=== PATIENT | male | born 1960 | race Caucasian/White ===

== ENCOUNTER 2020-02-24 16:17 | Inpatient (IN) ==
[2020-02-24] MEDS ORDERED: *HR* Heparin 10,000 UNIT/10 ML VIAL ONE ×2 (16:36→17:20)
[2020-02-24] MEDS ORDERED: *HR* Ticagrelor 90 MG TABLET ONE (16:39)
[2020-02-24] MEDS ORDERED: *HR* Atropine Sulfate 1 MG/10 ML SYRINGE ONE ×3 (16:53→22:00)
[2020-02-24] MEDS ORDERED: niCARdipine 20 MG/200 ML MLS IVC ONE (16:56)
[2020-02-24] MEDS ORDERED: Tirofiban 12.5 MG/250ML 12.5 MG/250 ML BAG ONE (17:09)
[2020-02-24] MEDS ORDERED: *HR* Midazolam HCl 2 MG/2 ML VIAL ONE (17:20)
[2020-02-24] MEDS ORDERED: 0.9 % Sodium Chloride 2,000 ML ONE (17:20)
[2020-02-24] MEDS ORDERED: *HR* Bivalirudin 250 MG VIAL IVC ONE (17:20)
[2020-02-24] MEDS ORDERED: Heparin 1,000 UNITS/500 mL 500 ML ONE (17:20)
[2020-02-24] MEDS ORDERED: *HR* FentaNYL (PF) 100 MCG/2 ML VIAL ONE (17:20)
[2020-02-24] MEDS ORDERED: ISOVUE-370 200 ML INFUS..BTL ONE (17:20)
[2020-02-24] MEDS ORDERED: Nitroglycerin 1,000 MCG/10 ML VIAL IV ONE (17:20)
[2020-02-24] MEDS ORDERED: 0.9 % Sodium Chloride 1,000 ML ONE (17:24)
[2020-02-24] MEDS ORDERED: Perflutren Lipid Microsphere 1.3 ML in 0.9 % Sodium Chloride 8.7 ML IVP PRN (17:26)
[2020-02-24] MEDS ORDERED: Tirofiban 0.05 MG/1 ML (BOLUS FROM BAG) IV ONE (17:26)
[2020-02-24] MEDS ORDERED: 0.9 % Sodium Chloride 1,000 ML IVC SCH (17:30)
[2020-02-24] MEDS ORDERED: Tirofiban 12.5 MG/250ML 12.5 MG/250 ML BAG IVC SCH (17:30)
[2020-02-24] MEDS: *HR* Ticagrelor 90 MG TABLET PO SCH (20:10)
[2020-02-25 05:42] LABS: Basophils # 0.1 K/mcL (0.0-0.2); Basophils % 0.4 %; Eosinophils % 0.2 %; Hematocrit 41.6 % (37.5-50.1); Immature Granulocytes % 0.3 % (0-4); Lymphocytes # 2.3 K/mcL (0.6-4.6); Lymphocytes % 14.2 %; Mean Corpuscular HGB Conc 33.7 g/dL (31.6-35.5); Mean Corpuscular Hemoglobin 31.7 pg (28.0-33.3); Mean Corpuscular Volume 94.1 fL (83.0-100.0); Mean Platelet Volume 8.9 fL (9.4-12.4); Monocytes # 1.4 K/mcL (0.0-1.3); Monocytes % 8.4 %; Neutrophils # 12.3 K/mcL (1.6-8.9); Platelet Count 313 K/mcL (140-400); Red Blood Count 4.42 M/mcL (4.19-5.50); Red Cell Distribution Width 13.4 % (11.5-14.5); Segmented Neutrophils % 76.5 %; White Blood Count 16.1 K/mcL (4.3-11.1)
[2020-02-25 06:08] LABS: Troponin I 30.71 ng/mL (< 0.04)
[2020-02-25 06:09] LABS: BUN/Creatinine Ratio 19 (6-26); Blood Urea Nitrogen 11 mg/dL (6-20); Calcium 8.6 mg/dL (8.6-10.3); Carbon Dioxide 24 mEq/L (23-29); Chloride 106 mEq/L (98-107); Chol/HDL Ratio 6.3 (0-4.9); Cholesterol 182 mg/dL (< 200); Glucose 122 mg/dL (70-105); HDL Cholesterol 29 mg/dL (40-59); LDL Cholesterol,Calculated 119 mg/dL (< 100); Osmolality,Calculated 285 (280-300); Potassium 4.1 mEq/L (3.5-5.1); Sodium 137 mEq/L (136-145); Triglycerides 170 mg/dL (< 150); eGFR For African Americans > 60 (> 60); eGFR For Non-African Americans > 60 (> 60)
[2020-02-25] MEDS ORDERED: Aspirin 81 MG TAB.CHEW PO SCH (09:00)
[2020-02-25] MEDS: *HR* Ticagrelor 90 MG TABLET PO SCH ×2 (09:41→20:30)
[2020-02-25] MEDS ORDERED: Famotidine 20 MG TABLET PO PRN (21:13)
[2020-02-26] MEDS: *HR* Ticagrelor 90 MG TABLET PO SCH ×2 (07:24→21:27)
[2020-02-26] MEDS: Aspirin 81 MG TAB.CHEW PO SCH (07:24)
[2020-02-26] MEDS ORDERED: 0.9 % Sodium Chloride 1,000 ML ONE (10:21)
[2020-02-27] MEDS: Aspirin 81 MG TAB.CHEW PO SCH (07:25)
[2020-02-27] MEDS: *HR* Ticagrelor 90 MG TABLET PO SCH (07:26)
[2020-02-27 11:11] VITALS: BP 108/63
== END 2020-02-27 14:02 | disposition home or self-care (01) | DRG 174 ==
LOC: EMEROOARM 16:17 → ICNU 18:04 → 2NNU 02-25 22:50
PROVIDERS: ADMIT Internal Medicine Interventional Cardiology; ATTEND Internal Medicine Interventional Cardiology